=== PATIENT | male | born 1940 | race Hispanic/Latino ===

== ENCOUNTER → 2018-07-12 | Outpatient (CLI) | payer MEDICARE ==
[~2018-07-12] MED LIST: CITA20TA17 PO; FINA5TAB41 PO; PANT40TA25 PO; TOPI100T37 PO; TRAM-355 PO
== END | disposition home or self-care (01) ==
LOC: RAH 10:27
PROVIDERS: ATTEND Family Medicine
DX: K91.840 Postprocedural hemorrhage of a digestive system organ or structure following a digestive system procedure (principal); K80.20 Calculus of gallbladder without cholecystitis without obstruction; N20.0 Calculus of kidney; R18.8 Other ascites; M47.819 Spondylosis without myelopathy or radiculopathy, site unspecified; M41.80 Other forms of scoliosis, site unspecified; Z93.1 Gastrostomy status
CPT/HCPCS: 74150

== ENCOUNTER → 2018-08-13 | Outpatient (CLI) | payer MEDICARE ==
--- NOTE | 2018-08-13 10:38 | NUR ---
MBSS COMPLETED. DEEP NON-TRANSIENT PENETRATION WITH THIN LIQUIDS. RECOMMEND NPO, LONG-TERM ALTERNATE MEANS OF NUTRITION/HYDRATION. PATIENT INFORMATION: Pt IS A 77 YEAR OLD MALE REFERRED FOR AN MBSS SECONDARY TO RECENT PEG PLACEMENT. Pt ALERT AND COOPERATIVE WITH STRONG VOCAL INTENSITY AT THE TIME OF THE MBSS. Pt CURRENTLY A Pt AT A LOCAL [facility]. Pt WAS ADMITTED SECONDARY TO [facility]. Pt HAS A PAST MEDICAL HISTORY SIGNIFICANT FOR CIRRHOSIS, ENCEPHALOPATHY, DEPRESSION, OBESITY, TRACH-SHILEY #6, PEG (06/2018), CARDIAC ISSUES. Pt RED CAPPED AT THE TIME OF THE MBSS. MBSS INTERPRETATION: Pt PRESENTS WITH MILD-MODERATE ORAL AND SEVERE PHARYNGEAL DYSPHAGIA CAUSED BY DECREASED ORAL MOTOR COORDINATION, DECREASED TONGUE BASE RETRACTION, DECREASED HYO-LARYNGEAL APPROXIMATION AND SEVERELY DELAYED PHARYNGEAL RESPONSE TRIGGER, DECREASED PRESSURE GENERATION WITHIN THE PHARYNX EVIDENCED BY DECREASED ROTARY MOTION DURING MASTICATION, POOLING IN VALLECULAE (NOT ABLE TO CLEAR-BOLUS POOLED IN VALLECULAE), AND PYRIFORM SINUS, DECREASED PHARYNGEAL STRIPPING WITH RESIDUE IN POSTERIOR PHARYNGEAL WALL, AND DECREASED LARYNGEAL ADDUCTION, RESULTING IN DEEP NON-TRANSIENT PENETRATION WITH THIN LIQUIDS, TRACES OF PUREED PENETRATED FROM POOLED BOLUS IN VALLECULAE. TRIALS: 1. TSP PUREED: POOLING IN VALLECULAE AND PYRIFORM SINUS 2. TSP THIN LIQUIDS: DEEP NON-TRANSIENT PENETRATION RECOMMENDATIONS: 1. NPO, PEG FEEDINGS (IN PLACE) 2. SKILLED SPEECH THERAPY TARGETING SWALLOWING IS RECOMMENDED 3-5XWK. G-CODES SWALLOWING: [id number] Addendum: 08/14/18 at 1051 by TIESHA PETTIT Amended: Links added.
== END | disposition home or self-care (01) ==
LOC: RAH 10:21
PROVIDERS: ATTEND Internal Medicine
DX: R13.10 Dysphagia, unspecified (principal); R63.3 Feeding difficulties
CPT/HCPCS: 74230; 92611

== ENCOUNTER → 2018-08-25 | Outpatient (CLI) | payer MEDICARE ==
--- NOTE | 2018-08-25 11:19 | NUR ---
REPEAT MBSS COMPLETED. SILENT ASPIRATION WITH THIN AND NECTAR-THICK LIQUIDS. RECOMMEND MECHANICAL SOFT/GROUND, HONEY-THICK LIQUIDS, PILLS CRUSHED WITH PUDDING. PATIENT INFORMATION: Pt IS A 77 YEAR OLD MALE REFERRED FOR A REPEAT MBSS SECONDARY TO IMPROVED SWALLOW FUNCTION AFTER THERAPEUTIC INTERVENTION AND DECANNULATION. Pt ALERT AND COOPERATIVE WITH STRONG VOCAL INTENSITY AT THE TIME OF THE MBSS. Pt CURRENTLY A [facility]. Pt WAS ADMITTED SECONDARY TO [facility]. Pt HAS A PAST MEDICAL HISTORY SIGNIFICANT FOR CIRRHOSIS, ENCEPHALOPATHY, DEPRESSION, OBESITY, TRACH WITH DECANNULATION LAST WEEK, PEG (06/2018), CARDIAC ISSUES. MBSS INTERPRETATION: Pt PRESENTS WITH MILD ORAL AND MODERATE-SEVERE PHARYNGEAL DYSPHAGIA CAUSED BY DECREASED ORAL MOTOR COORDINATION, DECREASED TONGUE BASE RETRACTION, DECREASED HYO-LARYNGEAL APPROXIMATION AND DELAYED PHARYNGEAL RESPONSE TRIGGER (2 SECONDS), DECREASED PRESSURE GENERATION WITHIN THE PHARYNX EVIDENCED BY DECREASED ROTARY MOTION DURING MASTICATION, POOLING IN VALLECULAE (MORE THAN 50% CLEARED WITH LIQUIDS WASH), AND PYRIFORM SINUS, DECREASED PHARYNGEAL STRIPPING WITH RESIDUE IN POSTERIOR PHARYNGEAL WALL (CURVATURE PRESENT IN SPINE WITH RESIDUE AT THAT LEVEL C-4,C-5), AND DECREASED LARYNGEAL ADDUCTION, RESULTING IN SILENT TRACE ASPIRATION WITH THIN LIQUIDS VIA TSP AND GROSS SILENT ASPIRATION WITH NECTAR-THICK LIQUIDS BEFORE THE SWALLOW. TRIALS: 1. TSP PUREED: POOLING IN VALLECULAE AND PYRIFORM SINUS 2. TSP HONEY-THICK LIQUIDS: GOOD 3. TSP PUDDING: RESIDUE IN VALLECULAE 4. TSP MIXED: GOOD 5. TSP THIN LIQUIDS: SILENT TRACE ASPIRATION 6. TSP NECTAR-THICK LIQUIDS: SILENT GROSS ASPIRATION BEFORE THE SWALLOW 7. TSP HONEY-THICK LIQUIDS: GOOD 8. DRY SWALLOW WITH CHIN TUCK: NOT SUCCESSFUL RECOMMENDATIONS: 1. MECHANICAL SOFT/GROUND, HONEY-THICK LIQUIDS; PILLS CRUSHED WITH PUDDING. 2. COMPENSATORY STRATEGIES: *SEATED AT 90 *ALTERNATE BITES AND SIPS *REMAIN UPRIGHT 30 MINUTES AFTER THE MEAL *LIQUIDS VIA TSP 3. SKILLED SPEECH THERAPY TARGETING SWALLOWING IS RECOMMENDED 3-5XWK. RESULTS AND RECOMMENDATIONS REVIEWED WITH Pt. HE VERBALIZED UNDERSTANDING. RECOMMENDATIONS WERE PROVIDED VIA WRITTEN MODALITY TO MATTHEW ZEPEDA). G-CODES SWALLOWING: [id number] Addendum: 08/25/18 at 1131 by TIANNA ALCANTAR, SPT ST Amended: Links added.
== END | disposition home or self-care (01) ==
LOC: RAH 09:49
PROVIDERS: ATTEND Internal Medicine
DX: R13.12 Dysphagia, oropharyngeal phase (principal); R63.3 Feeding difficulties
CPT/HCPCS: 74230; 92611